=== PATIENT | female | born 1945 | race Caucasian/White ===

== ENCOUNTER 2016-02-07 12:44 | Outpatient (RCR) | payer OTHER, MEDICARE ==
[~2016-02-07 12:44] MED LIST: ACHD5005 PO; ACTONEL 35 MG; ALN70T PO; ASP81CT PO; ASPI-892 PO; BISA5TAB8 PO; C250T; CHOL2000 PO; CLD600T PO; DCS100C PO; DENO60DI SQ; DOCU100T7 PO; DXM4T PO; E400C; ESOM20SU PO; EXEM25TA4 PO; GBPN300C PO; HYDR-3454 PO; MTP50T PO; MULT1TAB63; NEXIUM; NF-ESOM40C PO; OMEG-9 PO; OMG1KC PO; ONDA8TAB2 PO; ONDA8TAB6 PO; ONDN4T; PARO12.5 PO; PEG250PW PO; PRV20T; ROSU20TA14 PO; STOOL SOFTENER; VITA-198 PO; WRF1T PO; WRF5T PO
--- OUTSIDE RECORDS SUMMARY | 2016-02-07 12:48 | XMS REPORT ---
Author Author FELIPE WARREN [facility] Address [address] [place], [place] [id number] Care Team Providers Care Powder Blender Name Role Phone Librado WARREN PCP Unavailable Allergies and Adverse Reactions Name Reaction Notes NO KNOWN DRUG ALLERGIES Plan of Treatment Not available. Medications Active Name Start Date Estimated Completion Date SIG Comments Prolia 60 mg/mL subcutaneous syringe inject 1 milliliter (60 mg) by subcutaneous route every 6 months in the upper arm, upper thigh or abdomen Dr Dawson metoprolol succinate 50 mg oral tablet extended release 24 hr take 1 tablet (50 mg) by oral route once daily Dr Toscano cardiology Paxil CR 12.5 mg oral tablet extended release 24 hr take 1 tablet (12.5 mg) by oral route once daily Crestor 20 mg oral tablet take 1 tablet (20 mg) by oral route once daily Dr Toscano cardiology Nexium 20 mg oral capsule,delayed release(DR/EC) take 1 capsule (20 mg) by oral route once daily Dr Magallanes warfarin 5 mg oral tablet take 1 tablet (5 mg) by oral route once daily Dr Magallanes gabapentin 300 mg oral capsule take 1 capsule by oral route [address] Magallanes exemestane 25 mg oral tablet take 1 tablet (25 mg) by oral route once daily after a meal Vitamin D3 1,000 unit oral capsule take 1 capsule by oral route daily Dr Magallanes aspirin 81 mg oral tablet,delayed release (DR/EC) take 1 tablet (81 mg) by oral route once daily Calcium 600 600 mg (1,500 mg) oral tablet take 1 tablet by oral route 2 times a day Colace 100 mg oral capsule take 1 capsule (100 mg) by oral route once daily Fish Oil 900-1,400 mg oral capsule,delayed release(DR/EC) take 2 capsules by oral route daily phentermine 37.5 mg oral tablet 08/20/2015 09/19/2015 1/2-1 po in the am for short term weightloss Problem List Description Status Onset Breast Cancer, Female Active Cancer Active Deep Vein Thrombosis Active Depression Active Hypercholesterolemia Active Hypertension Active Onychomycosis Active 06/01/2013 Vital Signs Date Time BP-Sys(mm[Hg] BP-Dilia(mm[Hg]) HR(bpm) RR(rpm) Temp WT HT HC BMI BSA BMI Percentile O2 Sat(%) 08/20/2015 2:56:00 PM 128 mmHg 70 mmHg 70 bpm 18 rpm 98.3 F 210 lbs 67 in 32.89 kg/m2 2.12 m2 96 % 05/31/2013 3:01:00 PM 138 mmHg 72 mmHg 65 bpm 16 rpm 97.2 F 193 lbs 67 in 30.2278 kg/m 2.0343 m 98 % Social History Name Description Comments Alcohol Never Tobacco Never smoker History of Procedures Not available. Results Summary Not available. History Of Immunizations Not available. History of Past Illness Name Date of Onset Comments Cancer [place] Lymphoma Depression Hypertension Hypercholesterolemia Breast Cancer, Female Deep Vein Thrombosis Onychomycosis 06/01/2013 Non Hodgkins Lymphoma, Malignant Ingrown Nail May 31 2013 3:11PM Onychomycosis May 31 2013 3:11PM Breast Cancer, Personal History May 31 2013 3:11PM history non hodgkins Lymphoma, Malignant May 31 2013 3:11PM Dietary Counseling Aug 20 2015 2:56PM Exercise Counseling Aug 20 2015 2:56PM Polyphagia Aug 20 2015 2:56PM Overweight for height Aug 20 2015 2:56PM Payers Insurance Name Company Name Plan Name Plan Number Policy Number Policy Group Number Start Date [facility] [id number] N/A Medicare Part A Medicare RHC [id number] N/A Medicare Part A Medicare - Lab/Xray [id number] N/A [facility] [id number] N/A Medicare Part B Medicare Of [place] [id number] N/A Medicare Part A Medicare Part A [id number] N/A History of Encounters Visit Date Visit Type Provider 08/20/2015 Office visit FELIPE ASHTON 05/31/2013 Office visit FELIPE ASHTON 06/22/2012 Office visit Brett Santa DO
[2016-02-07 13:12] LABS: BASOPHILS % (AUTO) 1 % (0-10); EOSINOPHILS # (AUTO) 0.1 10^3/uL (0.0-0.3); EOSINOPHILS % (AUTO) 2 % (0-10); LYMPHOCYTES # (AUTO) 1.1 X 10^3 (1.0-4.0); LYMPHOCYTES % (AUTO) 33 % (12-44); MEAN CORPUSCULAR HEMOGLOBIN 32 PG (25-34); MEAN CORPUSCULAR HGB CONC 33 G/DL (32-36); MEAN CORPUSCULAR VOLUME 99 FL (80-99); MEAN PLATELET VOLUME 8.8 FL (7.4-10.4); MONOCYTES # (AUTO) 0.4 X 10^3 (0.0-1.0); MONOCYTES % (AUTO) 11 % (0-12); NEUTROPHILS # (AUTO) 1.7 X 10^3 (1.8-7.8); NEUTROPHILS % (AUTO) 53 % (42-75); PLATELET COUNT 153 10^3/uL (130-400); RED BLOOD COUNT 4.08 10^6/uL (4.35-5.85); RED CELL DISTRIBUTION WIDTH 13.3 % (10.0-14.5); WHITE BLOOD COUNT 3.2 10^3/uL (4.3-11.0)
[2016-02-07] MEDS ORDERED: DENOSUMAB 60 MG/1 ML (PROLIA) CANCER CTR SQ SCH (13:30)
[2016-02-07 14:04] LABS: BILIRUBIN,TOTAL 0.6 MG/DL (0.1-1.0); CALCIUM 9.4 MG/DL (8.5-10.1); CREATININE SERUM 0.94 MG/DL (0.60-1.30); POTASSIUM 3.9 MMOL/L (3.6-5.0); TOTAL PROTEIN 6.3 G/DL (6.4-8.2)
== END 2016-05-07 | disposition home or self-care (01) ==
LOC: ONC 12:44
PROVIDERS: ATTEND Internal Medicine Hematology & Oncology
DX: C50.412 Malignant neoplasm of upper-outer quadrant of left female breast (principal); C77.3 Secondary and unspecified malignant neoplasm of axilla and upper limb lymph nodes; M81.0 Age-related osteoporosis without current pathological fracture; Z85.79 Personal history of other malignant neoplasms of lymphoid, hematopoietic and related tissues; Z79.01 Long term (current) use of anticoagulants; Z79.82 Long term (current) use of aspirin; Z79.899 Other long term (current) drug therapy; Z92.3 Personal history of irradiation; Z92.21 Personal history of antineoplastic chemotherapy; Z17.0 Estrogen receptor positive status [ER+]
CPT/HCPCS: 36415; 80053; 83615; 85025; 96372; 99213

== ENCOUNTER → 2016-07-01 | Outpatient (CLI) | payer OTHER, MEDICARE ==
--- NOTE | 2016-07-04 17:52 | Diagnostic Imaging Report ---
Bilateral screening mammogram The current study was also evaluated with a Computer Aided Detection (CAD) system. INDICATION: Screening. No current complaints stated on the questionnaire. COMPARISON: 07/02/15. FINDINGS: The breasts are composed of scattered fibroglandular densities. Punctate calcifications are seen. Post-lumpectomy changes are noted in the left breast with skin thickening related to prior radiation as well demonstrating no significant change. Area of scarring at the lumpectomy site is also without significant change. Allowing for technique and positional differences, no suspicious change is seen. IMPRESSION: No significant change. ACR BI-RADS Category 2: Benign findings. Result letter will be mailed to the patient. Note: At least 10% of breast cancer is not imaged by mammography. Dictated by: Dictated on workstation # [id number]
== END ==
LOC: RAD 10:11
PROVIDERS: ATTEND Internal Medicine Hematology & Oncology
DX: Z12.31 Encounter for screening mammogram for malignant neoplasm of breast (principal); C50.412 Malignant neoplasm of upper-outer quadrant of left female breast
CPT/HCPCS: 77067

== ENCOUNTER → 2016-07-31 | Outpatient (CLI) | payer OTHER, MEDICARE ==
--- NOTE | 2016-07-31 15:11 | Diagnostic Imaging Report ---
EXAMINATION: DEXA scan. INDICATION: Osteopenia. TECHNIQUE: Bone mineral density estimated based on dual energy radiography over the lumbar spine and femoral necks was performed. FINDINGS: The lumbar spine T-score is -0.1. This is unchanged from the 06/29/2014 exam. The T score over the left femoral neck is -0.3 and on the right is -0.4. This is a 1.8% increased density measurement compared to the study of 06/29/2014. IMPRESSION: Normal bone mineral density. Dictated by: Dictated on workstation # [id number]
== END ==
LOC: RAD 09:04
PROVIDERS: ATTEND Internal Medicine Hematology & Oncology
DX: Z51.81 Encounter for therapeutic drug level monitoring (principal); M85.80 Other specified disorders of bone density and structure, unspecified site; Z79.899 Other long term (current) drug therapy
CPT/HCPCS: 77080

== ENCOUNTER 2016-08-27 11:00 | Outpatient (RCR) | payer OTHER, MEDICARE ==
[2016-08-27 11:16] LABS: BASOPHILS % (AUTO) 1 % (0-10); EOSINOPHILS # (AUTO) 0.1 10^3/uL (0.0-0.3); EOSINOPHILS % (AUTO) 2 % (0-10); LYMPHOCYTES % (AUTO) 25 % (12-44); MEAN CORPUSCULAR HEMOGLOBIN 32 PG (25-34); MEAN CORPUSCULAR HGB CONC 33 G/DL (32-36); MEAN CORPUSCULAR VOLUME 99 FL (80-99); MEAN PLATELET VOLUME 9.5 FL (7.4-10.4); MONOCYTES # (AUTO) 0.5 X 10^3 (0.0-1.0); MONOCYTES % (AUTO) 11 % (0-12); NEUTROPHILS # (AUTO) 2.5 X 10^3 (1.8-7.8); NEUTROPHILS % (AUTO) 61 % (42-75); PLATELET COUNT 142 10^3/uL (130-400); RED BLOOD COUNT 4.18 10^6/uL (4.35-5.85); RED CELL DISTRIBUTION WIDTH 12.1 % (10.0-14.5); WHITE BLOOD COUNT 4.1 10^3/uL (4.3-11.0)
[2016-08-27 11:32] LABS: BILIRUBIN,TOTAL 0.7 MG/DL (0.1-1.0); CALCIUM 9.4 MG/DL (8.5-10.1); CREATININE SERUM 0.97 MG/DL (0.60-1.30); ICTERUS 0.9 (-100-1.9); POTASSIUM 4.2 MMOL/L (3.6-5.0); TOTAL PROTEIN 6.4 GM/DL (6.4-8.2)
[2016-08-27] MEDS ORDERED: DENOSUMAB 60 MG/1 ML (PROLIA) CANCER CTR SQ SCH (11:56)
== END 2016-11-25 | disposition home or self-care (01) ==
LOC: ONC 11:00
PROVIDERS: ATTEND Internal Medicine Hematology & Oncology
DX: C50.412 Malignant neoplasm of upper-outer quadrant of left female breast (principal); C77.3 Secondary and unspecified malignant neoplasm of axilla and upper limb lymph nodes; M81.0 Age-related osteoporosis without current pathological fracture; Z85.79 Personal history of other malignant neoplasms of lymphoid, hematopoietic and related tissues; Z79.01 Long term (current) use of anticoagulants; Z79.82 Long term (current) use of aspirin; Z79.899 Other long term (current) drug therapy; Z92.3 Personal history of irradiation; Z92.21 Personal history of antineoplastic chemotherapy; Z17.0 Estrogen receptor positive status [ER+]
CPT/HCPCS: 36415; 80053; 83615; 85025; 96372

== ENCOUNTER 2017-02-26 10:07 | Outpatient (RCR) | payer OTHER, MEDICARE ==
[2017-02-26 10:53] LABS: BASOPHILS % (AUTO) 1 % (0-10); EOSINOPHILS # (AUTO) 0.1 10^3/uL (0.0-0.3); EOSINOPHILS % (AUTO) 2 % (0-10); HEMATOCRIT 42 % (35-52); HEMOGLOBIN 13.6 G/DL (11.5-16.0); LYMPHOCYTES % (AUTO) 25 % (12-44); MEAN CORPUSCULAR HEMOGLOBIN 33 PG (25-34); MEAN CORPUSCULAR HGB CONC 33 G/DL (32-36); MEAN CORPUSCULAR VOLUME 102 FL (80-99); MEAN PLATELET VOLUME 9.6 FL (7.4-10.4); MONOCYTES # (AUTO) 0.4 X 10^3 (0.0-1.0); MONOCYTES % (AUTO) 10 % (0-12); NEUTROPHILS # (AUTO) 2.7 X 10^3 (1.8-7.8); NEUTROPHILS % (AUTO) 63 % (42-75); PLATELET COUNT 139 10^3/uL (130-400); RED BLOOD COUNT 4.11 10^6/uL (4.35-5.85); RED CELL DISTRIBUTION WIDTH 12.1 % (10.0-14.5); WHITE BLOOD COUNT 4.2 10^3/uL (4.3-11.0)
[2017-02-26 11:09] LABS: ALANINE AMINOTRANSFERASE 16 U/L (0-55); ALBUMIN 3.9 GM/DL (3.2-4.5); ALKALINE PHOSPHATASE 43 U/L (40-136); BILIRUBIN,TOTAL 0.6 MG/DL (0.1-1.0); BUN/CREATININE RATIO 19; CALCIUM 9.6 MG/DL (8.5-10.1); CARBON DIOXIDE 34 MMOL/L (21-32); CHLORIDE 103 MMOL/L (98-107); CREATININE SERUM 0.83 MG/DL (0.60-1.30); GFR ESTIMATED > 60; GLUCOSE 106 MG/DL (70-105); POTASSIUM 4.9 MMOL/L (3.6-5.0); SODIUM 144 MMOL/L (135-145); TOTAL PROTEIN 6.4 GM/DL (6.4-8.2)
[2017-02-26] MEDS ORDERED: DENOSUMAB 60 MG/1 ML (PROLIA) CANCER CTR SQ SCH (12:00)
== END 2017-05-27 | disposition home or self-care (01) ==
LOC: ONC 10:07
PROVIDERS: ATTEND Internal Medicine Hematology & Oncology
DX: C50.412 Malignant neoplasm of upper-outer quadrant of left female breast (principal); C77.3 Secondary and unspecified malignant neoplasm of axilla and upper limb lymph nodes; M81.0 Age-related osteoporosis without current pathological fracture; Z85.79 Personal history of other malignant neoplasms of lymphoid, hematopoietic and related tissues; Z79.01 Long term (current) use of anticoagulants; Z79.82 Long term (current) use of aspirin; Z79.899 Other long term (current) drug therapy; Z92.3 Personal history of irradiation; Z92.21 Personal history of antineoplastic chemotherapy; Z17.0 Estrogen receptor positive status [ER+]
CPT/HCPCS: 36415; 80053; 82306; 82607; 82746; 83615; 85025; 96372

== ENCOUNTER 2017-03-18 13:53 | Outpatient (RCR) | payer OTHER, MEDICARE | END 2017-03-18 16:31 | disposition home or self-care (01) | PROVIDERS: ATTEND Internal Medicine Hematology & Oncology | DX: I89.0 Lymphedema, not elsewhere classified (principal) ==

== ENCOUNTER → 2017-07-02 | Outpatient (CLI) | payer OTHER, MEDICARE ==
--- NOTE | 2017-07-02 19:37 | Diagnostic Imaging Report ---
INDICATION: Routine screening. COMPARISON: Comparison is made with prior mammogram from 07/01/2016 and 07/02/2015. TECHNIQUE: Bilateral 3D digital tomographic views were obtained with Alektoia and reviewed on a Xpresso workstation. In addition, CAD - computer aided detection was utilized. FINDINGS: Scattered fibroglandular densities are identified bilaterally. Post lumpectomy changes in the outer left breast are again noted. Calcifications are noted bilaterally. The axillae are unremarkable. IMPRESSION: No mammographic features suspicious for malignancy are identified. ACR BI-RADS Category 2: Benign findings. Result letter will be mailed to the patient. Note: At least 10% of breast cancer is not imaged by mammography. Dictated by: Dictated on workstation # [id number]
== END ==
LOC: RAD 09:53
PROVIDERS: ATTEND Internal Medicine Hematology & Oncology
DX: Z12.31 Encounter for screening mammogram for malignant neoplasm of breast (principal)
CPT/HCPCS: 77067

== ENCOUNTER 2017-09-02 10:30 | Outpatient (RCR) | payer OTHER, MEDICARE ==
[2017-09-02 10:39] LABS: BASOPHILS % (AUTO) 1 % (0-10); EOSINOPHILS # (AUTO) 0.1 10^3/uL (0.0-0.3); EOSINOPHILS % (AUTO) 2 % (0-10); HEMATOCRIT 41 % (35-52); HEMOGLOBIN 13.4 G/DL (11.5-16.0); LYMPHOCYTES # (AUTO) 1.1 X 10^3 (1.0-4.0); LYMPHOCYTES % (AUTO) 30 % (12-44); MEAN CORPUSCULAR HEMOGLOBIN 32 PG (25-34); MEAN CORPUSCULAR HGB CONC 33 G/DL (32-36); MEAN CORPUSCULAR VOLUME 99 FL (80-99); MEAN PLATELET VOLUME 9.2 FL (7.4-10.4); MONOCYTES # (AUTO) 0.5 X 10^3 (0.0-1.0); MONOCYTES % (AUTO) 14 % (0-12); NEUTROPHILS # (AUTO) 1.9 X 10^3 (1.8-7.8); NEUTROPHILS % (AUTO) 53 % (42-75); PLATELET COUNT 142 10^3/uL (130-400); RED BLOOD COUNT 4.14 10^6/uL (4.35-5.85); RED CELL DISTRIBUTION WIDTH 12.2 % (10.0-14.5); WHITE BLOOD COUNT 3.5 10^3/uL (4.3-11.0)
[2017-09-02 10:56] LABS: ALANINE AMINOTRANSFERASE 14 U/L (0-55); ALBUMIN 4.1 GM/DL (3.2-4.5); ALKALINE PHOSPHATASE 40 U/L (40-136); BILIRUBIN,TOTAL 0.8 MG/DL (0.1-1.0); BUN/CREATININE RATIO 13; CALCIUM 9.1 MG/DL (8.5-10.1); CARBON DIOXIDE 27 MMOL/L (21-32); CHLORIDE 104 MMOL/L (98-107); CREATININE SERUM 0.79 MG/DL (0.60-1.30); GFR ESTIMATED > 60; GLUCOSE 92 MG/DL (70-105); POTASSIUM 4.5 MMOL/L (3.6-5.0); SODIUM 140 MMOL/L (135-145); TOTAL PROTEIN 6.4 GM/DL (6.4-8.2)
[2017-09-02] MEDS ORDERED: DENOSUMAB 60 MG/1 ML (PROLIA) CANCER CTR SQ SCH (11:15)
== END 2017-12-01 | disposition home or self-care (01) ==
LOC: ONC 10:30
PROVIDERS: ATTEND Internal Medicine Hematology & Oncology
DX: C50.412 Malignant neoplasm of upper-outer quadrant of left female breast (principal); C77.3 Secondary and unspecified malignant neoplasm of axilla and upper limb lymph nodes; M81.0 Age-related osteoporosis without current pathological fracture; Z85.79 Personal history of other malignant neoplasms of lymphoid, hematopoietic and related tissues; Z79.01 Long term (current) use of anticoagulants; Z79.82 Long term (current) use of aspirin; Z79.899 Other long term (current) drug therapy; Z92.3 Personal history of irradiation; Z92.21 Personal history of antineoplastic chemotherapy; Z17.0 Estrogen receptor positive status [ER+]
CPT/HCPCS: 36415; 80053; 83615; 85025; 96372

== ENCOUNTER 2018-02-18 13:00 | Outpatient (RCR) | payer OTHER, MEDICARE ==
[~2018-02-18 13:00] MED LIST changes: +DENOSUMAB 60 MG/1 ML (PROLIA) CANCER CTR SQ SCH
[2018-02-18 13:29] LABS: BASOPHILS % (AUTO) 1 % (0-10); EOSINOPHILS # (AUTO) 0.1 10^3/uL (0.0-0.3); EOSINOPHILS % (AUTO) 2 % (0-10); HEMATOCRIT 41 % (35-52); HEMOGLOBIN 13.4 G/DL (11.5-16.0); LYMPHOCYTES # (AUTO) 1.1 X 10^3 (1.0-4.0); LYMPHOCYTES % (AUTO) 31 % (12-44); MEAN CORPUSCULAR HEMOGLOBIN 32 PG (25-34); MEAN CORPUSCULAR HGB CONC 32 G/DL (32-36); MEAN CORPUSCULAR VOLUME 99 FL (80-99); MEAN PLATELET VOLUME 9.6 FL (7.4-10.4); MONOCYTES # (AUTO) 0.5 X 10^3 (0.0-1.0); MONOCYTES % (AUTO) 12 % (0-12); NEUTROPHILS % (AUTO) 55 % (42-75); PLATELET COUNT 145 10^3/uL (130-400); RED CELL DISTRIBUTION WIDTH 12.2 % (10.0-14.5); WHITE BLOOD COUNT 3.7 10^3/uL (4.3-11.0)
[2018-02-18 13:49] LABS: ALBUMIN 4.2 GM/DL (3.2-4.5); BILIRUBIN,TOTAL 0.5 MG/DL (0.1-1.0); CALCIUM 9.4 MG/DL (8.5-10.1); CREATININE SERUM 0.94 MG/DL (0.60-1.30); POTASSIUM 4.2 MMOL/L (3.6-5.0); TOTAL PROTEIN 6.5 GM/DL (6.4-8.2)
== END 2018-05-19 | disposition home or self-care (01) ==
LOC: ONC 13:00
PROVIDERS: ATTEND Internal Medicine Hematology & Oncology
DX: C50.412 Malignant neoplasm of upper-outer quadrant of left female breast (principal); C77.3 Secondary and unspecified malignant neoplasm of axilla and upper limb lymph nodes; M81.0 Age-related osteoporosis without current pathological fracture; Z85.79 Personal history of other malignant neoplasms of lymphoid, hematopoietic and related tissues; Z79.01 Long term (current) use of anticoagulants; Z79.82 Long term (current) use of aspirin; Z79.899 Other long term (current) drug therapy; Z92.3 Personal history of irradiation; Z92.21 Personal history of antineoplastic chemotherapy; Z17.0 Estrogen receptor positive status [ER+]
CPT/HCPCS: 36415; 80053; 83615; 85025; 96372

== ENCOUNTER → 2018-08-10 | Outpatient (CLI) | payer MEDICARE, OTHER ==
[~2018-08-10] MED LIST changes: -DENOSUMAB 60 MG/1 ML (PROLIA) CANCER CTR SQ SCH
--- NOTE | 2018-08-10 11:23 | Diagnostic Imaging Report ---
INDICATION: Screening for osteoporosis. COMPARISON: 07/31/2016 FINDINGS: The T score for the spine is 0.1. On the prior exam, the T score was -0.1. The T score for the left hip is -0.4 and for the right hip -0.2. Previously, the T scores were -0.3 and -0.4. All of these values are within normal limits. On the prior exam, the T score for the left femoral neck and the right femoral neck were not calculated. On this study, the T score for the left femoral neck is -1.3 and this does fall in the range of osteopenia. The T score for the right femoral neck is -1.0 and at the lowest end of normal. IMPRESSION: 1. There has been a slight increase in the bone mineral density of the spine and the right hip and a minimal decrease in the bone mineral density of the left hip. All of these values remain within normal limits. 2. The T score for the right femoral neck is at the lowest end of normal while the T score for the left femoral neck indicates osteopenia. 3. See below National Osteoporosis Foundation guidelines on when to potentially initiate pharmacologic therapy. AP Spine L1-L4: [BMD (g/cm2): 1.216] [T-Score: 0.1] [Z-Score: 1.5] [BMD Previous: na] [BMD % Change: na] LT Hip Neck: [BMD (g/cm2): 0.861] [T-Score: -1.3] [Z-Score: 0.3] LT Hip Total: [BMD (g/cm2):0.961] [T-Score:-0.4] [Z-Score: 1.0] [BMD Previous: na] [BMD % Change: na] RT Hip Neck: [BMD (g/cm2):0.895] [T-Score:-1.0] [Z-Score:0.6] RT Hip Total: [BMD (g/cm2):0.980] [T-score:-0.2] [Z-Score:1.1] [BMD Previous:na] [BMD % Change:na] *Indicates significant change from prior examination based on 95% confidence level. World Health Organization criteria for BMD interpretation classify patients as Normal (T-score at or above -1.0), Osteopenic (T-score between -1.0 and -2.5) or Osteoporotic (T-score at or below -2.5). LIMITATIONS AND MODIFICATION: None. FRACTURE RISK (FRAX SCORE): The ten year probability of (%): Major Osteoporotic Fracture: [10.3] Hip Fracture: [1.6] Based on the National Osteoporosis Foundation Guidelines, pharmacologic treatment should be initiated in any of the following, unless clinical conditions suggest otherwise: * Any patient with prior fragility fracture of the hip or vertebrae. A spine fracture indicates 5X risk for subsequent spine fracture and 2X risk for subsequent hip fracture. * Osteoporosis (T-score <-2.5). * Postmenopausal women and men age 50 and older with low bone mass/osteopenia (T-score between -1.0 and -2.5) by DXA and 10-year major osteoporotic fracture greater than 20% or a 10-year probability of hip fracture greater than 3%. These fracture risks are supplied above in the FRAX score, if applicable. * Clinician judgement and/or patient preferences may indicate treatment for people with 10-year fracture probabilities above or below these levels. Dictated by: Dictated on workstation # [id number]
--- NOTE | 2018-08-10 21:25 | Diagnostic Imaging Report ---
INDICATION: Routine screening. Comparison is made with prior mammograms from 07/02/2017 and 07/01/2016. 2-D and 3-D bilateral screening mammography was performed with a Computer Aided Detection (CAD) system. FINDINGS: Scattered fibroglandular densities are identified bilaterally. Post lumpectomy changes in the upper-outer left breast are again noted. This appears stable. No new mass or malignant-appearing microcalcifications are seen. Axillae are unremarkable. IMPRESSION: No mammographic features suspicious for malignancy are identified. ACR BI-RADS Category 2: Benign findings. Result letter will be mailed to the patient. Note: At least 10% of breast cancer is not imaged by mammography. Dictated by: Dictated on workstation # [id number]
== END ==
LOC: RAD 09:20
PROVIDERS: ATTEND Nurse Practitioner Adult Health
DX: C50.812 Malignant neoplasm of overlapping sites of left female breast (principal); C82.28 Follicular lymphoma grade III, unspecified, lymph nodes of multiple sites; M81.0 Age-related osteoporosis without current pathological fracture; Z78.0 Asymptomatic menopausal state
CPT/HCPCS: 77067; 77080

== ENCOUNTER 2018-08-16 10:49 | Outpatient (RCR) | payer MEDICARE, OTHER ==
[2018-08-16 11:02] LABS: BASOPHILS % (AUTO) 1 % (0-10); EOSINOPHILS # (AUTO) 0.1 10^3/uL (0.0-0.3); EOSINOPHILS % (AUTO) 2 % (0-10); HEMATOCRIT 42 % (35-52); HEMOGLOBIN 13.4 G/DL (11.5-16.0); LYMPHOCYTES # (AUTO) 0.9 X 10^3 (1.0-4.0); LYMPHOCYTES % (AUTO) 26 % (12-44); MEAN CORPUSCULAR HEMOGLOBIN 32 PG (25-34); MEAN CORPUSCULAR HGB CONC 32 G/DL (32-36); MEAN CORPUSCULAR VOLUME 99 FL (80-99); MEAN PLATELET VOLUME 9.5 FL (7.4-10.4); MONOCYTES # (AUTO) 0.4 X 10^3 (0.0-1.0); MONOCYTES % (AUTO) 11 % (0-12); NEUTROPHILS % (AUTO) 60 % (42-75); PLATELET COUNT 129 10^3/uL (130-400); RED CELL DISTRIBUTION WIDTH 12.5 % (10.0-14.5); WHITE BLOOD COUNT 3.3 10^3/uL (4.3-11.0)
[2018-08-16 11:25] LABS: ALANINE AMINOTRANSFERASE 16 U/L (0-55); ALBUMIN 3.9 GM/DL (3.2-4.5); ALKALINE PHOSPHATASE 41 U/L (40-136); BILIRUBIN,TOTAL 0.4 MG/DL (0.1-1.0); BUN/CREATININE RATIO 14; CALCIUM 8.6 MG/DL (8.5-10.1); CARBON DIOXIDE 30 MMOL/L (21-32); CHLORIDE 107 MMOL/L (98-107); CREATININE SERUM 0.87 MG/DL (0.60-1.30); GFR ESTIMATED > 60; GLUCOSE 85 MG/DL (70-105); POTASSIUM 3.9 MMOL/L (3.6-5.0); SODIUM 144 MMOL/L (135-145); TOTAL PROTEIN 6.1 GM/DL (6.4-8.2)
[2018-08-16] MEDS ORDERED: DENOSUMAB 60 MG/1 ML (PROLIA) CANCER CTR SQ SCH (11:40)
[2018-09-22] MEDS ORDERED: CALC1CAP5 PO (13:19)
[2018-09-22] MEDS ORDERED: GABA-488 PO (13:19)
[2018-09-22] MEDS ORDERED: ROSU20TA32 PO (13:19)
[2018-09-22] MEDS ORDERED: ASPI-999 PO (13:19)
[2018-09-22] MEDS ORDERED: METO-370 PO (13:42)
[2018-09-22] MEDS ORDERED: WARF-48 PO ×2 (13:42)
[2018-09-22] MEDS ORDERED: PARO10TA3 PO (13:42)
[2018-09-22] MEDS ORDERED: CHOL500049 PO (13:42)
[2018-09-22] MEDS ORDERED: FURO20TA4 PO (13:42)
[2018-09-22] MEDS ORDERED: DENO60DI SQ (13:42)
[2018-09-22] MEDS ORDERED: DOCU100T2 PO (13:42)
== END 2018-11-14 | disposition home or self-care (01) ==
LOC: EDBD → ONC 10:49
PROVIDERS: ATTEND Internal Medicine Hematology & Oncology
DX: C50.412 Malignant neoplasm of upper-outer quadrant of left female breast (principal); C77.3 Secondary and unspecified malignant neoplasm of axilla and upper limb lymph nodes; M81.0 Age-related osteoporosis without current pathological fracture; Z85.79 Personal history of other malignant neoplasms of lymphoid, hematopoietic and related tissues; Z79.01 Long term (current) use of anticoagulants; Z79.82 Long term (current) use of aspirin; Z79.899 Other long term (current) drug therapy; Z92.3 Personal history of irradiation; Z92.21 Personal history of antineoplastic chemotherapy; Z17.0 Estrogen receptor positive status [ER+]
CPT/HCPCS: 80053; 83615; 85025; 96372; 99213

== ENCOUNTER 2018-09-22 06:10 | Outpatient (CLI) | payer MEDICARE, OTHER ==
[~2018-09-22] VITALS: Ht 170.2 cm; Wt 81.6 kg
[2018-09-22] MEDS ORDERED: ROSU20TA31 PO (13:19)
[2018-09-22] MEDS ORDERED: GABA-488 PO (13:19)
[2018-09-22] MEDS ORDERED: ASPI-999 PO (13:19)
[2018-09-22] MEDS ORDERED: CALC1CAP5 PO (13:19)
[2018-09-22] MEDS ORDERED: CHOL500049 PO (13:42)
[2018-09-22] MEDS ORDERED: DOCU100T2 PO (13:42)
[2018-09-22] MEDS ORDERED: FURO20TA4 PO (13:42)
[2018-09-22] MEDS ORDERED: PARO10TA3 PO (13:42)
[2018-09-22] MEDS ORDERED: METO-370 PO (13:42)
[2018-09-22] MEDS ORDERED: WARF-48 PO ×2 (13:42)
[2018-09-22] MEDS ORDERED: DENO60DI SQ (13:42)
== END 2018-09-22 13:47 | disposition home or self-care (01) ==
LOC: PREOP 06:10
PROVIDERS: ATTEND Specialist
DX: Z01.818 Encounter for other preprocedural examination (principal)

== ENCOUNTER → 2018-10-05 | Outpatient (CLI) | payer MEDICARE, OTHER ==
[~2018-10-05] MED LIST changes: +ASPI-999 PO; +CALC1CAP5 PO; +CHOL500049 PO; +DOCU100T2 PO; +FURO20TA4 PO; +GABA-488 PO; +METO-370 PO; +PARO10TA3 PO; +ROSU20TA31 PO; +WARF-48 PO
== END | disposition home or self-care (01) ==
LOC: EDBD → PREOP 05:36
PROVIDERS: ATTEND Specialist
DX: Z01.818 Encounter for other preprocedural examination (principal)

== ENCOUNTER 2018-10-08 08:29 | Day surgery (SDC) | payer MEDICARE, OTHER ==
[~2018-10-08] VITALS: Ht 170.2 cm; Wt 81.6 kg
[~2018-10-08 08:29] MED LIST changes: -ROSU20TA31 PO; +ROSU20TA32 PO; +acetaZOLAMIDE ER 500 MG CAP (DIAMOX SEQUELS) PO ONE
[2018-10-08 08:35] VITALS: BP 134/64
[2018-10-08] MEDS ORDERED: LIDOCAINE PF 1% 2 ML AMP IR PRN (08:45)
[2018-10-08] MEDS ORDERED: TIMOLOL MALEATE 0.5% 5 ML (TIMOPTIC) BTL OU PRN (08:45)
[2018-10-08] MEDS ORDERED: POVIDONE (BETADINE) OPHTH SOLN 5% 30 ML OP ONE (08:45)
[2018-10-08] MEDS ORDERED: MOXIFLOXACIN OPHTH SOLN 5 MG/ML 0.3 ML SYRINGE OP ONE (08:45)
[2018-10-08] MEDS: TETRACAINE 0.5% OPHTH SOLN 4 ML BTL (SINGLE DOSE ONLY) OU PRN ×4 (08:48→09:06)
[2018-10-08] MEDS ORDERED: MIDAZOLAM 2 MG/2 ML (VERSED) VIAL ONE (08:55)
--- NOTE | 2018-10-08 08:55 | Ophthalmologist Pre-Op Note ---
Pre-Operative Progress Note H&P Reviewed The H&P was reviewed, patient examined and no changes noted. Date H&P Reviewed: Oct 08, 2018 Time H&P Reviewed: 08:54 Pre-Op Dx Cataract, Left Eye URVASHI WARREN MD Oct 08, 2018 08:55
[2018-10-08] MEDS: CYCLOPENTOLATE 1% (CYCLOGYL) 2 ML DROPS OP SCH ×3 (08:56→09:06)
[2018-10-08] MEDS: PHENYLEPHRINE 10% OPHTH (NEO-SYN) 5 ML BTL OU SCH ×3 (08:56→09:06)
--- NOTE | 2018-10-08 09:35 | Ophthalmology Operative Report ---
Cataract removal/placement IOL PREOPERATIVE DIAGNOSIS: Cataract Left Eye POSTOPERATIVE DIAGNOSIS: Cataract Left Eye PROCEDURE: Cataract removal and placement of posterior chamber implant, left eye SURGEON: Bg Warren ANESTHESIA: Topical with sedation COMPLICATIONS: None ESTIMATED BLOOD LOSS: Minimal DESCRIPTION OF PROCEDURE: After proper informed consent was obtained, the patient, a 73 female, was taken to the Operating Room and the left eye was anesthetized with tetracaine. The left eye was then prepped and draped in the usual manner. A wire lid speculum was placed. A paracentesis was made at the left hand position. Preservative free lidocaine was injected into the anterior chamber followed by viscoelastic. A clear corneal incision was made in the temporal position. A capsulorrhexis was preformed and the central nuclear and cortical material were removed. The posterior capsule was polished and an Cristian 25.0 AU00T0 was placed into the capsular bag. The residual viscoelastic was aspirated and balanced saline solution was injected into the anterior chamber. Moxifloxacin was injected into the anterior chamber. The wound was checked and found to be water tight. The patient tolerated the procedure well without complications. BG WARREN MD Oct 08, 2018 09:35
[2018-10-08 09:40] VITALS: BP 145/77
--- NOTE | 2018-10-08 10:57 | Anesthesia-General Post-Op ---
MAC Patient Condition Mental Status/LOC: Same as Preop Cardiovascular: Satisfactory Nausea/Vomiting: Absent Respiratory: Satisfactory Pain: Controlled Complications: Absent Post Op Complications Complications None Follow Up Care/Instructions Patient Instructions None needed. Anesthesiology Discharge Order Discharge Order Patient is doing well, no complaints, stable vital signs, no apparent adverse anesthesia problems. No complications reported per nursing. BO HINTON CRNA Oct 08, 2018 10:57
== END 2018-10-08 09:40 | disposition home or self-care (01) ==
LOC: EDBD → SDC 08:29
PROVIDERS: ATTEND Specialist
DX: H25.12 Age-related nuclear cataract, left eye (principal); I10 Essential (primary) hypertension; M19.90 Unspecified osteoarthritis, unspecified site; Z85.3 Personal history of malignant neoplasm of breast; Z85.72 Personal history of non-Hodgkin lymphomas; Z79.01 Long term (current) use of anticoagulants; Z79.82 Long term (current) use of aspirin; Z79.899 Other long term (current) drug therapy; Z80.3 Family history of malignant neoplasm of breast; Z83.518 Family history of other specified eye disorder; Z83.511 Family history of glaucoma

== ENCOUNTER 2018-10-20 06:07 | Outpatient (CLI) | payer MEDICARE, OTHER ==
[~2018-10-20] VITALS: Ht 170.2 cm; Wt 81.6 kg
[~2018-10-20 06:07] MED LIST changes: -acetaZOLAMIDE ER 500 MG CAP (DIAMOX SEQUELS) PO ONE
== END 2018-10-21 12:34 | disposition home or self-care (01) ==
LOC: PREOP 06:07
PROVIDERS: ATTEND Specialist
DX: Z01.818 Encounter for other preprocedural examination (principal)

== ENCOUNTER 2018-10-22 07:21 | Day surgery (SDC) | payer MEDICARE, OTHER ==
[~2018-10-22] VITALS: Ht 170.2 cm; Wt 81.6 kg
[2018-10-22 07:35] VITALS: BP 124/68
[2018-10-22] MEDS: TETRACAINE 0.5% OPHTH SOLN 4 ML BTL (SINGLE DOSE ONLY) OU PRN ×4 (07:43→08:03)
[2018-10-22] MEDS ORDERED: MOXIFLOXACIN OPHTH SOLN 5 MG/ML 0.3 ML SYRINGE OP ONE (07:45)
[2018-10-22] MEDS ORDERED: LIDOCAINE PF 1% 2 ML AMP IR PRN (07:45)
[2018-10-22] MEDS ORDERED: TIMOLOL MALEATE 0.5% 5 ML (TIMOPTIC) BTL OU PRN (07:45)
[2018-10-22] MEDS ORDERED: POVIDONE (BETADINE) OPHTH SOLN 5% 30 ML OP ONE (07:45)
[2018-10-22] MEDS: CYCLOPENTOLATE 1% (CYCLOGYL) 2 ML DROPS OP SCH ×3 (07:50→08:03)
[2018-10-22] MEDS: PHENYLEPHRINE 10% OPHTH (NEO-SYN) 5 ML BTL OU SCH ×3 (07:50→08:03)
[2018-10-22] MEDS ORDERED: MIDAZOLAM 2 MG/2 ML (VERSED) VIAL ONE (08:38)
--- NOTE | 2018-10-22 08:38 | Ophthalmologist Pre-Op Note ---
Pre-Operative Progress Note H&P Reviewed The H&P was reviewed, patient examined and no changes noted. Date H&P Reviewed: Oct 22, 2018 Time H&P Reviewed: 08:37 Pre-Op Dx Cataract, Right Eye URVASHI WARREN MD Oct 22, 2018 08:37
[2018-10-22] MEDS ORDERED: acetaZOLAMIDE ER 500 MG CAP (DIAMOX SEQUELS) PO ONE (09:00)
--- NOTE | 2018-10-22 09:06 | Ophthalmology Operative Report ---
Cataract removal/placement IOL PREOPERATIVE DIAGNOSIS: Cataract Right Eye POSTOPERATIVE DIAGNOSIS: Cataract Right Eye PROCEDURE: Cataract removal and placement of posterior chamber implant, right eye SURGEON: Bg Warren ANESTHESIA: Topical with sedation COMPLICATIONS: None ESTIMATED BLOOD LOSS: Minimal DESCRIPTION OF PROCEDURE: After proper informed consent was obtained, the patient, a 73 female, was taken to the Operating Room and the right eye was anesthetized with tetracaine. The right eye was then prepped and draped in the usual manner. A wire lid speculum was placed. A paracentesis was made at the left hand position. Preservative free lidocaine was injected into the anterior chamber followed by viscoelastic. A clear corneal incision was made in the temporal position. A capsulorrhexis was preformed and the central nuclear and cortical material were removed. The posterior capsule was polished and Cristian AU00T0 24.5 IOL was placed into the capsular bag. The residual viscoelastic was aspirated and balanced saline solution was injected into the anterior chamber. Moxifloxacin was injected into the anterior chamber. The wound was checked and found to be water tight. The patient tolerated the procedure well without complications. BG WARREN MD Oct 22, 2018 09:06
[2018-10-22 09:10] VITALS: BP 127/66
--- NOTE | 2018-10-22 14:40 | Anesthesia-General Post-Op ---
MAC Patient Condition Mental Status/LOC: Same as Preop Cardiovascular: Satisfactory Nausea/Vomiting: Absent Respiratory: Satisfactory Pain: Controlled Complications: Absent Post Op Complications Complications None Follow Up Care/Instructions Patient Instructions None needed. Anesthesiology Discharge Order Discharge Order Patient is doing well, no complaints, stable vital signs, no apparent adverse anesthesia problems. No complications reported per nursing. PAOLA MICHAEL CRNA Oct 22, 2018 14:40
== END 2018-10-22 09:10 | disposition home or self-care (01) ==
LOC: SDC 07:21
PROVIDERS: ATTEND Specialist
DX: H25.11 Age-related nuclear cataract, right eye (principal); I10 Essential (primary) hypertension; Z83.511 Family history of glaucoma; Z80.3 Family history of malignant neoplasm of breast; Z83.518 Family history of other specified eye disorder; Z79.82 Long term (current) use of aspirin; Z79.01 Long term (current) use of anticoagulants; Z79.899 Other long term (current) drug therapy

== ENCOUNTER → 2019-08-15 | Outpatient (CLI) | payer MEDICARE, OTHER ==
[~2019-08-15] MED LIST changes: -METO-370 PO; +METO50TA7 PO
--- NOTE | 2019-08-15 11:30 | Diagnostic Imaging Report ---
INDICATION: Routine screening. COMPARISON: 08/10/2018 and 07/02/2017. TECHNIQUE: 2D and 3D bilateral screening mammography was performed with CAD. FINDINGS: Both breasts are heterogeneously dense, limiting the sensitivity of mammography. Post-lumpectomy changes in the upper outer left breast are again noted. No recurrent mass is identified. There are occasional benign calcifications. No malignant appearing microcalcifications are seen. The axillae are stable. IMPRESSION: No mammographic features suspicious for malignancy are identified. ACR BI-RADS Category 2: Benign findings. Result letter will be mailed to the patient. Note: At least 10% of breast cancer is not imaged by mammography. Dictated by: Dictated on workstation # [id number]
== END ==
LOC: EDBD → RAD 09:15
PROVIDERS: ATTEND Internal Medicine Hematology & Oncology
DX: Z12.31 Encounter for screening mammogram for malignant neoplasm of breast (principal); C50.412 Malignant neoplasm of upper-outer quadrant of left female breast
CPT/HCPCS: 77063; 77067

== ENCOUNTER 2019-09-14 09:28 | Outpatient (RCR) | payer MEDICARE, OTHER ==
[~2019-09-14 09:28] MED LIST changes: +DENOSUMAB 60 MG/1 ML (PROLIA) CANCER CTR SQ SCH
[2019-09-14 09:43] LABS: BASOPHILS % (AUTO) 1 % (0-10); EOSINOPHILS # (AUTO) 0.1 10^3/uL (0.0-0.3); EOSINOPHILS % (AUTO) 3 % (0-10); HEMATOCRIT 42 % (35-52); HEMOGLOBIN 13.4 G/DL (11.5-16.0); LYMPHOCYTES % (AUTO) 23 % (12-44); MEAN CORPUSCULAR HEMOGLOBIN 32 PG (25-34); MEAN CORPUSCULAR HGB CONC 32 G/DL (32-36); MEAN CORPUSCULAR VOLUME 98 FL (80-99); MEAN PLATELET VOLUME 9.8 FL (7.4-10.4); MONOCYTES # (AUTO) 0.6 X 10^3 (0.0-1.0); MONOCYTES % (AUTO) 13 % (0-12); NEUTROPHILS # (AUTO) 2.6 X 10^3 (1.8-7.8); NEUTROPHILS % (AUTO) 61 % (42-75); PLATELET COUNT 139 10^3/uL (130-400); WHITE BLOOD COUNT 4.3 10^3/uL (4.3-11.0)
[2019-09-14 10:04] LABS: ALBUMIN 3.9 GM/DL (3.2-4.5); BILIRUBIN,TOTAL 0.6 MG/DL (0.1-1.0); CALCIUM 9.4 MG/DL (8.5-10.1); CREATININE SERUM 1.02 MG/DL (0.60-1.30); POTASSIUM 3.7 MMOL/L (3.6-5.0); TOTAL PROTEIN 6.3 GM/DL (6.4-8.2)
== END 2019-12-13 | disposition home or self-care (01) ==
LOC: ONC 09:28
PROVIDERS: ATTEND Internal Medicine Hematology & Oncology
DX: C50.412 Malignant neoplasm of upper-outer quadrant of left female breast (principal); C82.28 Follicular lymphoma grade III, unspecified, lymph nodes of multiple sites; M81.0 Age-related osteoporosis without current pathological fracture; I89.0 Lymphedema, not elsewhere classified; M85.80 Other specified disorders of bone density and structure, unspecified site; Z92.3 Personal history of irradiation
CPT/HCPCS: 80053; 83615; 85025; G0463; 99213

== ENCOUNTER → 2020-08-21 | Outpatient (CLI) | payer MEDICARE, OTHER ==
[~2020-08-21] MED LIST changes: -DENOSUMAB 60 MG/1 ML (PROLIA) CANCER CTR SQ SCH
--- NOTE | 2020-08-21 12:16 | Diagnostic Imaging Report ---
INDICATION: Postmenopausal state. COMPARISON: 08/10/2018 and 07/31/2016. However, given technical difficulties, comparison to the 2019 study with statistical data was not possible. FINDINGS: AP Spine L1-L4: [BMD (g/cm2): 1.311] [T-Score: 0.9] [Z-Score: 2.1] [BMD Previous: 1.188] [BMD % Change: 10.4] LT Hip Neck: [BMD (g/cm2): 0.801] [T-Score: -1.7] [Z-Score: -0.1] LT Hip Total: [BMD (g/cm2):0.945] [T-Score:-0.5] [Z-Score: 0.9] [BMD Previous: 0.966] [BMD % Change: -2.2] RT Hip Neck: [BMD (g/cm2):0.844] [T-Score:-1.4] [Z-Score:0.2] RT Hip Total: [BMD (g/cm2):0.932] [T-score:-0.6] [Z-Score:0.8] [BMD Previous:0.953] [BMD % Change:-2.2] *Indicates significant change from prior examination based on 95% confidence level. World Health Organization criteria for BMD interpretation classify patients as Normal (T-score at or above -1.0), Osteopenic (T-score between -1.0 and -2.5) or Osteoporotic (T-score at or below -2.5). LIMITATIONS AND MODIFICATION: None. FRACTURE RISK (FRAX SCORE): The ten year probability of (%): Major Osteoporotic Fracture: [13] Hip Fracture: [3.7] IMPRESSION: 1. Osteopenia (Low bone mass). 2. Due to differences in equipment utilized between examinations, direct quantitative comparison is not possible to assess for interval change in bone mineral density. 3. See below National Osteoporosis Foundation guidelines on when to potentially initiate pharmacologic therapy. Based on the National Osteoporosis Foundation Guidelines, pharmacologic treatment should be initiated in any of the following, unless clinical conditions suggest otherwise: * Any patient with prior fragility fracture of the hip or vertebrae. A spine fracture indicates 5X risk for subsequent spine fracture and 2X risk for subsequent hip fracture. * Osteoporosis (T-score <-2.5). * Postmenopausal women and men age 50 and older with low bone mass/osteopenia (T-score between -1.0 and -2.5) by DXA and 10-year major osteoporotic fracture greater than 20% or a 10-year probability of hip fracture greater than 3%. These fracture risks are supplied above in the FRAX score, if applicable. * Clinician judgement and/or patient preferences may indicate treatment for people with 10-year fracture probabilities above or below these levels. Dictated by: Dictated on workstation # [id number]
--- NOTE | 2020-08-21 12:39 | Diagnostic Imaging Report ---
Indication: Routine screening. Comparison is made with prior mammogram from 08/15/2019 and 08/10/2018. 2-D and 3-D bilateral screening mammography was performed with CAD. Both breasts remain heterogeneously dense, limiting sensitivity of mammography. There are postlumpectomy changes in the upper and outer aspect of the left breast. Post-therapeutic changes, stable. No mass or malignant appearing microcalcifications are seen. Axillae are unremarkable. IMPRESSION: BI-RADS Category 2 No mammographic features suspicious for malignancy are identified. ACR BI-RADS Category 2: Benign findings. Result letter will be mailed to the patient. Note: At least 10% of breast cancer is not imaged by mammography. Dictated by: Dictated on workstation # [id number]
== END ==
LOC: RAD 10:00
PROVIDERS: ATTEND Nurse Practitioner Adult Health
DX: Z12.31 Encounter for screening mammogram for malignant neoplasm of breast (principal); M81.0 Age-related osteoporosis without current pathological fracture; C82.28 Follicular lymphoma grade III, unspecified, lymph nodes of multiple sites; M85.80 Other specified disorders of bone density and structure, unspecified site; Z78.0 Asymptomatic menopausal state; Z85.3 Personal history of malignant neoplasm of breast
CPT/HCPCS: 77063; 77067; 77080

== ENCOUNTER → 2020-09-13 | Outpatient (CLI) | payer MEDICARE, OTHER ==
[~2020-09-13] MED LIST changes: +DENOSUMAB 60 MG/1 ML (PROLIA) CANCER CTR SQ SCH
[2020-09-13 14:32] LABS: BASOPHILS % (AUTO) 1 % (0-10); EOSINOPHILS # (AUTO) 0.1 10^3/uL (0.0-0.3); EOSINOPHILS % (AUTO) 2 % (0-10); HEMATOCRIT 43 % (35-52); HEMOGLOBIN 13.7 g/dL (11.5-16.0); LYMPHOCYTES # (AUTO) 1.3 10^3/uL (1.0-4.0); LYMPHOCYTES % (AUTO) 30 % (12-44); MEAN CORPUSCULAR HEMOGLOBIN 32 pg (25-34); MEAN CORPUSCULAR HGB CONC 32 g/dL (32-36); MEAN CORPUSCULAR VOLUME 100 fL (80-99); MEAN PLATELET VOLUME 9.3 fL (9.0-12.2); MONOCYTES # (AUTO) 0.4 10^3/uL (0.0-1.0); MONOCYTES % (AUTO) 8 % (0-12); NEUTROPHILS # (AUTO) 2.5 10^3/uL (1.8-7.8); NEUTROPHILS % (AUTO) 59 % (42-75); PLATELET COUNT 146 10^3/uL (130-400); WHITE BLOOD COUNT 4.3 10^3/uL (4.3-11.0)
[2020-09-13 14:52] LABS: ALANINE AMINOTRANSFERASE 22 U/L (0-55); ALBUMIN 3.8 GM/DL (3.2-4.5); ALKALINE PHOSPHATASE 59 U/L (40-136); BILIRUBIN,TOTAL 0.8 MG/DL (0.1-1.0); BUN/CREATININE RATIO 18; CALCIUM 9.2 MG/DL (8.5-10.1); CARBON DIOXIDE 28 MMOL/L (21-32); CHLORIDE 105 MMOL/L (98-107); CREATININE SERUM 0.84 MG/DL (0.60-1.30); GFR ESTIMATED > 60; GLUCOSE 114 MG/DL (70-105); SODIUM 141 MMOL/L (135-145); TOTAL PROTEIN 6.5 GM/DL (6.4-8.2)
== END ==
LOC: EDSTATUS 12-14 10:35 → ONC 14:18
PROVIDERS: ATTEND Internal Medicine Hematology & Oncology
DX: C50.411 Malignant neoplasm of upper-outer quadrant of right female breast (principal); C82.90 Follicular lymphoma, unspecified, unspecified site; M85.80 Other specified disorders of bone density and structure, unspecified site; E66.9 Obesity, unspecified; I10 Essential (primary) hypertension; E78.5 Hyperlipidemia, unspecified; E78.00 Pure hypercholesterolemia, unspecified; R59.0 Localized enlarged lymph nodes; Z92.21 Personal history of antineoplastic chemotherapy; Z92.3 Personal history of irradiation; Z90.12 Acquired absence of left breast and nipple; Z79.890 Hormone replacement therapy
CPT/HCPCS: 80053; 83615; 85025; G0463; 99213

== ENCOUNTER → 2020-09-24 | Outpatient (CLI) | payer MEDICARE, OTHER ==
[~2020-09-24] MED LIST changes: +CATHETER FLUSH 10 ML SYR IV PRN; -DENOSUMAB 60 MG/1 ML (PROLIA) CANCER CTR SQ SCH; +HOLD METFORMIN - RECEIVED CONTRAST 20 ML VIAL IV SCH; +IOHEXOL 350 MG/ML 100 ML (OMNIPAQUE 350) VIAL IV ONE; +NS 100 ML (IVPB) BAG IV ONE
--- NOTE | 2020-09-24 10:27 | Diagnostic Imaging Report ---
PROCEDURE: CT chest with contrast, CT abdomen and pelvis with and without contrast. TECHNIQUE: Pre and post intravenous contrast axial imaging of the abdomen and pelvis and post contrast axial imaging of the chest were performed. Auto Exposure Controls were utilized during the CT exam to meet ALARA standards for radiation dose reduction. INDICATION: History of lymphoma. COMPARISON: Exam is compared with CT of the abdomen and pelvis performed 08/11/2014 and compared with chest CT 01/27/2011. 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 On the chest CT of 2010, there were large centrally necrotic or cystic lesions in the left axilla as well as a dominant lesion in the left breast, previously it had a diameter of 4.5 cm. There is a thick-walled centrally fluid attenuating mass in the left breast at that level today, more posteriorly measuring 1.9 x 1.6 cm, much smaller than on prior. Deep to that structure, there is some subpleural scarring in the left upper lobe and mild bronchiectasis in the lingular segment. The parenchymal changes in the lungs are likely on a post-treatment/postradiation basis. It is likely that the left breast mass measured above is the remnant of the prior much larger cystic or necrotic lesion; however, given the lack of interval studies over the last 10 years, the possibility of a new centrally necrotic mass could not be excluded. Nonemergent correlative diagnostic mammography and ultrasound suggested. The left cystic or necrotic lesions in the axilla have all resolved. The right axilla appeared normal. There are postsurgical changes to the left breast having occurred in the interim, likely accounting for the fluid-like collection. There is no axillary, hilar, or mediastinal lymphadenopathy. No pulmonary nodule or lung mass. No evidence of pneumonia. ABDOMEN AND PELVIS: There are chronic benign cysts in the liver. No solid or suspicious liver mass. No biliary abnormality. Left renal cortical cyst is chronic. The spleen is normal in size and nonfocal. There is a small hiatal hernia. Pancreas is negative. There is no hydroureteronephrosis. There is no abdominopelvic mesenteric or retroperitoneal adenopathy. An IVC filter is present. No arterial or venous thrombus identified. The uterus, adnexa, and urinary bladder are unremarkable. No suspicious lytic or sclerotic bony lesion. IMPRESSION: CHEST: 1. Interval postsurgical changes to the left breast. Previously, there was a very large cystic or centrally necrotic mass at that level. A smaller lesion with greater rim enhancement is found, somewhat irregular and posteriorly positioned abutting the pectoralis. Deep to that site, there is some chronic appearing scarring in the lingular segment of the left upper lobe as well as subpleural fibrosis favoring a postradiation change. If the left breast lesion has not been worked up or confirmed as reflective of the old lesion from 10 years ago, diagnostic mammography and targeted ultrasound would be recommended as a nonemergent outpatient follow-up. 2. Chest is otherwise normal and showed no lymphadenopathy or pulmonary nodule. ABDOMEN AND PELVIS: 1. Some chronic cysts with no adenopathy, mass, obstructive features, ascites, or acute appearing abnormalities. 2. No findings of abdominopelvic involvement by neoplasm. Dictated by: Dictated on workstation # [id number]
== END ==
LOC: RAD 08:47
PROVIDERS: ATTEND Internal Medicine Hematology & Oncology
DX: N64.9 Disorder of breast, unspecified (principal); N28.1 Cyst of kidney, acquired; K76.89 Other specified diseases of liver; R60.0 Localized edema; Z98.890 Other specified postprocedural states; Z85.72 Personal history of non-Hodgkin lymphomas
CPT/HCPCS: 71260; 74178

== ENCOUNTER → 2021-08-27 | Outpatient (CLI) | payer MEDICARE ==
[~2021-08-27] MED LIST changes: -CATHETER FLUSH 10 ML SYR IV PRN; -HOLD METFORMIN - RECEIVED CONTRAST 20 ML VIAL IV SCH; -IOHEXOL 350 MG/ML 100 ML (OMNIPAQUE 350) VIAL IV ONE; -NS 100 ML (IVPB) BAG IV ONE
--- NOTE | 2021-08-27 15:04 | Diagnostic Imaging Report ---
INDICATION: Routine screening. COMPARISON: 08/21/2020 and 08/15/2019. TECHNIQUE: 2D and 3D bilateral screening mammography was performed with CAD. FINDINGS: Both breasts are heterogeneously dense, limiting the sensitivity of mammography. Post-therapeutic changes in the left breast are again noted. The overall pattern is stable. No mass or malignant-appearing microcalcifications are seen. The axillae are unremarkable. IMPRESSION: No mammographic features suspicious for malignancy are identified. ACR BI-RADS Category 2: Benign findings. Result letter will be mailed to the patient. Note: At least 10% of breast cancer is not imaged by mammography. Dictated by: Dictated on workstation # [id number]
== END ==
LOC: RAD 09:48
PROVIDERS: ATTEND Internal Medicine Hematology & Oncology
DX: Z12.31 Encounter for screening mammogram for malignant neoplasm of breast (principal); Z85.3 Personal history of malignant neoplasm of breast
CPT/HCPCS: 77063; 77067

== ENCOUNTER → 2022-09-10 | Outpatient (CLI) | payer MEDICARE, OTHER ==
--- NOTE | 2022-09-10 13:05 | Diagnostic Imaging Report ---
Indication: Routine screening. Comparison is made with prior mammogram from 08/27/2021 and 08/21/2020. 2-D and 3-D bilateral screening mammography was performed with CAD. The current study was also evaluated with a Computer Aided Detection (CAD) system. Scattered fibroglandular densities are identified bilaterally. Post-therapeutic changes in the left breast are again noted. No definite residual or recurrent mass is identified. There are benign calcifications bilaterally. No malignant-appearing microcalcifications are identified. Axillae are unremarkable. IMPRESSION: BI-RADS Category 2 No mammographic features suspicious for malignancy are identified. ACR BI-RADS Category 2: Benign findings. Result letter will be mailed to the patient. Note: At least 10% of breast cancer is not imaged by mammography. Dictated by: Dictated on workstation # [id number]
== END ==
LOC: RAD 10:48
PROVIDERS: ATTEND Internal Medicine Hematology & Oncology
DX: Z12.31 Encounter for screening mammogram for malignant neoplasm of breast (principal); Z85.3 Personal history of malignant neoplasm of breast
CPT/HCPCS: 77063; 77067